=== PATIENT | male | born 1950 | race Caucasian/White ===

== ENCOUNTER 2023-06-24 00:46 | Day surgery (SDC) | payer MEDICARE, SELFPAY ==
[2023-04-26 13:58] VITALS: BMI 24.4
[2023-06-14 13:48] VITALS: BMI 24.4
[2023-06-24 09:55] VITALS: BP 115/80; PULSE 80; RESP 17; TEMP 36.3; O2SAT 95; BMI 23.8
[2023-06-24] MEDS: LACTATED RINGERS 1,000 ML 150 ML IV CONT (10:04)
--- NOTE | 2023-06-24 10:25 | PM.HPGS ---
History of Present Illness History of Present Illness Consent: Risks, benefits, and alternatives have been discussed and questions answered. Patient agrees to proceed with procedure. Chief complaint: rectal bleeding Narrative: Harry Mcdonnell is a 72 year old male Presents for colonoscopy. Patient reports bright red blood per rectum that occurred for several days in July of 2022. Patient denies any associated abdominal pain or bleeding. Patient does have a past medical history of colon polyps. most recent colonoscopy in 2019 revealed internal hemorrhoids, diverticulosis and a benign hyperplastic polyp patient referred for colonoscopy at this time. Review of Systems Review of Systems: Review of systems noncontributory. [facility] Past Medical History Medical History (Updated 06/24/23 @ 10:27 by Ervin Bernstein MD) Carpal tunnel syndrome Enlarged tonsils and adenoids Eye disease Surgical History Surgical History (Updated 10/11/22 @ 11:10 by Gerardo Heart) H/O foot surgery H/O splenectomy Family History Family History Sibling Patient's sister is in good health Patient's brother is in good health Mother Patient's mother is Father Patient's father is Other Family history of kidney disease Social History Social History Smoking status: Never smoker Second hand tobacco smoke exposure: No Alcohol intake: current Drinks per week: 5 Substance use: never Substance use type: does not use Living arrangements: with family Spiritual care concerns: No Meds Home Medications and Allergies Home Medications Medication Instructions Recorded Confirmed Type fexofenadine 180 mg tablet 180 mg PO DAILY 11/27/19 06/24/23 History (Zeynep Allergy) mometasone 50 mcg/actuation nasal 2 spray intranasal DAILY #51 grams 06/03/20 06/24/23 Rx spray (Nasonex) zinc 50 mg tablet 50 mg PO DAILY 12/16/20 06/24/23 History simvastatin 20 mg tablet 20 mg PO DAILY #90 tabs 05/22/21 06/24/23 Rx cholecalciferol (vitamin D3) 25 25 mcg PO DAILY 06/17/21 06/24/23 History mcg (1,000 unit) capsule Allergies Allergy/AdvReac Type Severity Reaction Status Date / Time No Known Allergies Allergy Verified 06/24/23 09:54 Vital Signs Vital Signs - 24 hr 06/24/23 09:55 Temperature 97.4 F L Pulse Rate 80 Respiratory Rate 17 Blood Pressure 115/80 Pulse Oximetry 95 Oxygen Delivery Room Air Exam Narrative: Physical exam reveals patient to be alert. Vital signs stable. HEENT exam is unremarkable. Patient is anicteric. Lungs are clear to auscultation and percussion. Heart is without murmur or extra sounds. Abdomen bowel sounds present soft nontender with no organomegaly. Digital external rectal exam normal. Assessment and Plan Assessment and plan (1) Rectal bleeding: Code(s): K62.5 - Hemorrhage of anus and rectum Status: Acute Assessment and Plan: Patient had brief episode rectal bleeding 8 or 9 months ago. Plan for patient be on a high-fiber diet. Patient referred for colonoscopy to exclude any additional pathology. Further recommendations will be given after endoscopy.
--- NOTE | 2023-06-24 10:32 | P.PNAN_ITS ---
Anes - Initial Pre Proc Eval Procedure: Operation Date: 06/24/23 11:00 Proposed Procedures p Colonoscopy - Ervin Bernstein MD Date/Time: 06/24/23 10:32 Surgeon: Ervin Bernstein MD Pre Op Diagnosis: rectal bleeding Patient Data Age: 72 Gender: M Height: 1.75 m Weight: 73 kg Last Vital Signs Temp 97.4 F L 06/24/23 09:55 Pulse 80 06/24/23 09:55 Resp 17 06/24/23 09:55 BP 115/80 06/24/23 09:55 Pulse Ox 95 06/24/23 09:55 O2 Del Method Room Air 06/24/23 09:55 Allergies Allergy/AdvReac Type Severity Reaction Status Date / Time No Known Allergies Allergy Verified 06/24/23 09:54 Home Medications Medication Instructions Recorded Confirmed Type fexofenadine 180 mg tablet 180 mg PO DAILY 11/27/19 06/24/23 History (Zeynep Allergy) mometasone 50 mcg/actuation nasal 2 spray intranasal DAILY #51 grams 06/03/20 06/24/23 Rx spray (Nasonex) zinc 50 mg tablet 50 mg PO DAILY 12/16/20 06/24/23 History simvastatin 20 mg tablet 20 mg PO DAILY #90 tabs 05/22/21 06/24/23 Rx cholecalciferol (vitamin D3) 25 25 mcg PO DAILY 06/17/21 06/24/23 History mcg (1,000 unit) capsule Patient hx anesthesia problems: none Family hx anesthesia problems: none Results Review: All pre-operative results and documents have been reviewed as part of the pre- operative evaluation. [facility] Past Medical History Medical History (Updated 06/24/23 @ 10:27 by Ervin Bernstein MD) Carpal tunnel syndrome Enlarged tonsils and adenoids Eye disease Surgical History Surgical History (Updated 10/11/22 @ 11:10 by Gerardo Heart) H/O foot surgery H/O splenectomy Family History Family History Sibling Patient's sister is in good health Patient's brother is in good health Mother Patient's mother is Father Patient's father is Other Family history of kidney disease Social History Social History Smoking status: Never smoker Second hand tobacco smoke exposure: No Alcohol intake: current Drinks per week: 5 Substance use: never Substance use type: does not use Living arrangements: with family Spiritual care concerns: No Anes - Eval Final PreProcedure Day of Procedure 06/24/23 10:32 Patient weight: normal Heart: regular rate and rhythm Lungs: clear to auscultation Airway: Mallampati scale class II Neurological: alert and oriented Last oral intake: >/= 8 hours ASA classification: III Emergent: no Anesthetic plan: proceed Anesthesia type and monitoring: general GIVS and standard monitoring Results Review: All pre-operative results and documents have been reviewed as part of the pre- operative evaluation. Informed Consent: The patient's anesthetic plan and its attendant risks and benefits were discussed with the patient/family/POA. Questions were solicited and answers provided to the satisfaction of the patient/family/POA.
[2023-06-24 10:53] VITALS: BP 89/62; PULSE 86; RESP 22; O2SAT 95
[2023-06-24 11:03] VITALS: BP 102/69; PULSE 75; RESP 21; O2SAT 95
[2023-06-24 11:13] VITALS: BP 105/66; PULSE 78; RESP 18; O2SAT 94
== END 2023-06-24 11:25 | disposition home or self-care (01) ==
PROVIDERS: PCP Family Medicine; Visit Provider Internal Medicine Gastroenterology
PROC: 0DJD8ZZ Inspection of Lower Intestinal Tract, Via Natural or Artificial Opening Endoscopic (ICD-10-PCS; CPT 45378; principal; 2023-06-24 11:00)
DX: D12.2 Benign neoplasm of ascending colon (principal); D12.3 Benign neoplasm of transverse colon; D12.5 Benign neoplasm of sigmoid colon; K64.8 Other hemorrhoids
CPT/HCPCS: 45385; 88305; J2704; J7120